=== PATIENT | male | born 1945 | race Caucasian/White ===

== ENCOUNTER → 2017-03-03 | Outpatient (CLI) | payer OTHER ==
[~2017-03-03] VITALS: Ht 175.3 cm; Wt 88.9 kg
[~2017-03-03] MED LIST: ALDACTONE25 MG PO; ALLEGRA ALLERG180 MG PO; ALLEGRA180 MG PO; ALTACE10 M1 PO; ALTACE10 MG PO; ASPIR-MOX IB C325 MG PO; CALTRATE PLUS1 EACH PO; CENTRUM SILV1 TABLE1 PO; CENTRUM SILV1 TABLET PO; CENTRUM SILVER1 EAC3 PO; CIALIS20 MG PO; COLACE100 MG PO; CYANOCOBALAM1000 MCG PO; ECOTRIN325 MG PO; FISH OIL CONC1 EACH PO; FISH OIL500 MG PO; FLAGYL500 MG PO; FLOMAX0.4 MG PO; Flomax PO; Flonase BOTH NARES; GLIMEPIRIDE1 MG PO; GLIMEPIRIDE2 MG PO; GLUCOPHAGE XR1000 MG PO; GLUCOPHAGE1000 MG PO; HYDROCHLOROTHIA25 MG PO; JANUVIA100 MG PO; LANTUS 3 M100 UNITS1 SC; LANTUS100 UNIT/1 SQ; LANTUS100 UNIT/2 SQ; LEVITRA20 MG PO; LIPITOR80 MG PO; LOPID600 M1 NG; LOPID600 M1 PO; LOPID600 MG PO; MAGNESIUM400 M1 PO; MIRALAX, GLYCOL1 PK1 PO; MULTI COMPLETE1 EACH PO; NORVASC5 MG PO; OSTERA TABLET1 EACH PO; PROTONIX40 MG PO; RESTASIS 01 DROP/0.4 BOTH EYES; RESTASIS MULTI5.5 ML BOTH EYES; SAW PALMETTO1000 MG PO; SAW PALMETTO500 MG PO; VENTOLIN HFA18 GM IH; VIOKASE PO; VITAMIN B-250 MG PO; VITAMIN D2000 INTUN PO; VITAMIN D2000 UNIT PO; ZOCOR40 MG PO; ZYRTEC10 M3 PO; Zocor PO; [UNRECOGNIZED DRUG - OTHER] PO; [UNRECOGNIZED DRUG - OTHER] PO
[2017-03-03 14:29] LABS: POINT-OF-CARE METER ID UU14107333
[2017-03-03 16:13] LABS: POINT-OF-CARE METER ID UU13113819
== END | disposition home or self-care (01) ==
LOC: AMB 13:25
PROVIDERS: Internal Medicine
PROC: 0DB48ZX Excision of Esophagogastric Junction, Via Natural or Artificial Opening Endoscopic, Diagnostic (ICD-10-PCS; principal; 2017-03-03)
DX: K22.70 Barrett's esophagus without dysplasia (principal); K21.9 Gastro-esophageal reflux disease without esophagitis; K59.00 Constipation, unspecified; Z86.010 Personal history of colon polyps; Z80.0 Family history of malignant neoplasm of digestive organs; E11.65 Type 2 diabetes mellitus with hyperglycemia; Z79.4 Long term (current) use of insulin; N40.0 Benign prostatic hyperplasia without lower urinary tract symptoms; E78.00 Pure hypercholesterolemia, unspecified; I10 Essential (primary) hypertension; E66.9 Obesity, unspecified; I25.10 Atherosclerotic heart disease of native coronary artery without angina pectoris; Z87.891 Personal history of nicotine dependence; Z83.3 Family history of diabetes mellitus; Z88.0 Allergy status to penicillin
CPT/HCPCS: 82948; 88305; J2250; J3010

== ENCOUNTER 2018-02-03 23:13 | Inpatient (IN) | payer OTHER ==
[~2018-02-03] VITALS: Ht 175.3 cm; Wt 91.6 kg
[2018-02-03 23:51] LABS: HEMATOCRIT 39.4 % (38.0-50.0); HEMOGLOBIN 13.5 G/DL (12.5-16.6); MCH 28.8 PG (29.0-34.0); MCHC 34.3 G/DL (30.0-36.0); MCV 84.2 FL (86-99); PLATELET COUNT 332 K/uL (156-360); RBC DIS.WIDTH-CV 13.9 % (11.8-14.6); RBC DIS.WIDTH-SD 42.7 % (39-53); RED BLOOD COUNT 4.68 M/uL (4.00-5.50); WHITE BLOOD COUNT 19.2 K/uL (4.1-10.2)
[2018-02-03 23:56] LABS: ALBUMIN 4.7 g/dL (3.2-4.8); CHLORIDE 98 mEq/L (99-109); POTASSIUM 3.7 mEq/L (3.7-5.4); SODIUM 135 mEq/L (136-147)
[2018-02-03 23:58] LABS: GLUCOSE 150 mg/dL (70-99); TOTAL PROTEIN 7.3 g/dL (6.4-8.3)
[2018-02-04] LABS: TOTAL BILIRUBIN 0.7 mg/dL (0.0-1.0)
[2018-02-04 00:02] LABS: ALKALINE PHOSPHATASE 86 IU/L (3-129); CREATININE 1.3 mg/dL (0.6-1.3); GFR ESTIMATE (CALCULATED) 57 mL/min/ (58.99-99999)
[2018-02-04 00:03] LABS: AST (GOT) 25 IU/L (2-34); UREA NITROGEN (BUN) 19 mg/dL (9-23)
[2018-02-04 00:05] LABS: ALT (GPT) 32 IU/L (3-49); LIPASE 22 U/L (1.0-51.0)
[2018-02-04 00:08] LABS: TROP-I INTERPRETATION NEGATIVE; TROPONIN-I < 0.01 ng/mL (0.0-0.30)
[2018-02-04] MEDS ORDERED: IMODIUM A-D2 M2 PO (01:49)
[2018-02-04] MEDS ORDERED: FLONASE16 G1 BOTH NARES (01:50)
[2018-02-04] MEDS ORDERED: TYLENOL EXTRA500 MG PO (01:50)
[2018-02-04] MEDS ORDERED: COLACE100 MG PO (01:50)
[2018-02-04] MEDS ORDERED: VITAMIN B-650 MG PO (01:50)
[2018-02-04 05:40] VITALS: BP 104/58
[2018-02-04 07:09] VITALS: BP 120/60
[2018-02-04 09:34] LABS: HEMATOCRIT 34.7 % (38.0-50.0); HEMOGLOBIN 11.5 G/DL (12.5-16.6); MCH 28.2 PG (29.0-34.0); MCHC 33.1 G/DL (30.0-36.0); PLATELET COUNT 302 K/uL (156-360); RBC DIS.WIDTH-SD 43.7 % (39-53); RED BLOOD COUNT 4.08 M/uL (4.00-5.50); WHITE BLOOD COUNT 16.3 K/uL (4.1-10.2)
[2018-02-04 09:40] LABS: ALKALINE PHOSPHATASE 49 IU/L (3-129); ALT (GPT) 22 IU/L (3-49); AST (GOT) 17 IU/L (2-34); CHLORIDE 103 MEQ/L (99-109); GFR ESTIMATE (CALCULATED) > 59 mL/min/ (58.99-99999); GLUCOSE 103 mg/dL (70-99); POTASSIUM 3.8 MEQ/L (3.7-5.4); SODIUM 137 MEQ/L (136-147); TOTAL BILIRUBIN 0.6 MG/DL (0.0-1.0); TOTAL PROTEIN 5.9 G/DL (6.4-8.3); UREA NITROGEN (BUN) 16 mg/dL (9-23)
[2018-02-04 13:14] LABS: HEMOGLOBIN A1c (GLYCOHEMOGLOB) 6.8 % (Below 5.7)
[2018-02-04 13:17] LABS: APPEARANCE CLEAR ((CLEAR)); BILIRUBIN NEGATIVE; BLOOD NEGATIVE; COLOR YELLOW ((YELLOW)); GLUCOSE (STRIP) NEGATIVE; KETONES NEGATIVE; LEUKOCYTES NEGATIVE; NITRITE NEGATIVE; PROTEIN (STRIP) NEGATIVE; SPECIFIC GRAVITY 1.015 (1.000-1.030); UCUL ADDED? NO; UROBILINOGEN 0.2 MG/DL (0.2-1.0)
[2018-02-04 14:52] LABS: HEMATOCRIT 31.7 % (38.0-50.0); HEMOGLOBIN 10.5 G/DL (12.5-16.6); MCH 28.6 PG (29.0-34.0); MCHC 33.1 G/DL (30.0-36.0); MCV 86.4 FL (86-99); PLATELET COUNT 262 K/uL (156-360); RBC DIS.WIDTH-CV 14.4 % (11.8-14.6); RBC DIS.WIDTH-SD 45.5 % (39-53); RED BLOOD COUNT 3.67 M/uL (4.00-5.50); WHITE BLOOD COUNT 12.7 K/uL (4.1-10.2)
[2018-02-04 15:10] VITALS: BP 124/58
[2018-02-05 00:30] VITALS: BP 131/64
[2018-02-05 06:10] LABS: HEMATOCRIT 33.1 % (38.0-50.0); HEMOGLOBIN 10.8 G/DL (12.5-16.6); MCH 28.3 PG (29.0-34.0); MCHC 32.6 G/DL (30.0-36.0); MCV 86.9 FL (86-99); PLATELET COUNT 267 K/uL (156-360); RBC DIS.WIDTH-CV 14.4 % (11.8-14.6); RED BLOOD COUNT 3.81 M/uL (4.00-5.50); WHITE BLOOD COUNT 10.6 K/uL (4.1-10.2)
[2018-02-05 06:38] LABS: CHLORIDE 104 MEQ/L (99-109); GFR ESTIMATE (CALCULATED) > 59 mL/min/ (58.99-99999); GLUCOSE 121 mg/dL (70-99); POTASSIUM 3.6 MEQ/L (3.7-5.4); SODIUM 138 MEQ/L (136-147); UREA NITROGEN (BUN) 9 mg/dL (9-23)
[2018-02-05 07:15] VITALS: BP 167/76
[2018-02-05 10:35] LABS: C DIFF TOXIN ND (NEGATIVE)
[2018-02-05] MEDS ORDERED: ZOFRAN4 MG PO (11:26)
[2018-02-05] MEDS ORDERED: CIPRO500 MG PO (11:26)
[2018-02-05] MEDS ORDERED: FLAGYL500 MG PO (11:26)
== END 2018-02-05 13:37 | disposition home or self-care (01) | DRG 392 ==
LOC: EME 23:13 → 5SOUTH 02-04 02:11 → EDOF 02-04 02:11 → ENRESERV 02-04 02:14 → 5SOUTH 02-04 04:56
PROVIDERS: Emergency Medicine; Internal Medicine; Physician Assistant Medical
DX: K52.9 Noninfective gastroenteritis and colitis, unspecified (principal); R65.10 Systemic inflammatory response syndrome (SIRS) of non-infectious origin without acute organ dysfunction; F17.200 Nicotine dependence, unspecified, uncomplicated; K21.9 Gastro-esophageal reflux disease without esophagitis; I12.9 Hypertensive chronic kidney disease with stage 1 through stage 4 chronic kidney disease, or unspecified chronic kidney disease; K22.70 Barrett's esophagus without dysplasia; E78.5 Hyperlipidemia, unspecified; E11.22 Type 2 diabetes mellitus with diabetic chronic kidney disease; N40.0 Benign prostatic hyperplasia without lower urinary tract symptoms; N18.9 Chronic kidney disease, unspecified; I25.10 Atherosclerotic heart disease of native coronary artery without angina pectoris; Z79.82 Long term (current) use of aspirin; I25.2 Old myocardial infarction; Z87.891 Personal history of nicotine dependence; Z95.5 Presence of coronary angioplasty implant and graft; Z79.4 Long term (current) use of insulin
CPT/HCPCS: 74177; 80048; 80053; 81003; 82948; 83036; 83605; 83630; 83690; 84484; 85014; 85018; 85027; 87040; 87493; 93005; 99281; 99285; J0744; J1644; J1815; J2765; J7030; S0030